=== PATIENT | female | born 1970 | race Caucasian/White ===

== ENCOUNTER → 2016-12-05 | Outpatient (CLI) | payer OTHER ==
[~2016-12-05] MED LIST: CLTP PO; ENBIUNK; HYDR0.5T PO; NAPR-1169 PO; SYN112 PO
--- NOTE | 2016-12-05 17:56 | DIAGNOSTIC IMAGING REPORT ---
BILATERAL LOWER EXTREMITY VENOUS DOPPLER HISTORY: Acute right lower extremity pain and swelling. Initial exam. RT LEG Pain, r/o DVT Right COMPARISON STUDY: None. FINDINGS: There is normal compressibility, flow, and augmentation within the right lower extremity deep venous system. IMPRESSION: No sonographic evidence of deep venous thrombosis within the right lower extremity. Electronically signed by: Charles Velazquez M.D. 12/05/2016 5:55 PM Dictated Date/Time: 12/05/2016 5:52 PM
== END | disposition home or self-care (01) ==
LOC: C.ULTR 16:52
PROVIDERS: ATTEND Family Medicine
DX: M79.661 Pain in right lower leg (principal)

== ENCOUNTER → 2017-07-15 | Outpatient (CLI) | payer OTHER ==
[2017-07-15 18:10] LABS: FOLLICLE STIMULAT HORMONE 62.26 IU/L
== END | disposition home or self-care (01) ==
LOC: C.LAB1850 16:46
PROVIDERS: ATTEND Obstetrics & Gynecology
DX: N89.8 Other specified noninflammatory disorders of vagina (principal); N91.2 Amenorrhea, unspecified

== ENCOUNTER → 2017-08-25 | Outpatient (CLI) | payer OTHER ==
--- NOTE | 2017-08-25 09:55 | DIAGNOSTIC IMAGING REPORT ---
THYROID ULTRASOUND CLINICAL HISTORY: Hypothyroidism. Thyroid nodule. COMPARISON STUDY: Thyroid ultrasound December 02, 2015. TECHNIQUE: Sonography of the thyroid gland was performed. FINDINGS: The thyroid gland is diminutive and heterogeneous. No thyroid nodule is identified. The right lobe measures 3 x 1 x 0.8 cm and left lobe measures 2.4 x 0.6 x 0.8 cm. Isthmus measures 0.2 cm in thickness. IMPRESSION: 1. Heterogeneous, small thyroid gland. 2. No thyroid nodule. Electronically signed by: Collin Barth M.D. 08/25/2017 9:53 AM Dictated Date/Time: 08/25/2017 9:52 AM
== END | disposition home or self-care (01) ==
LOC: C.ULTR 09:17
PROVIDERS: ATTEND Family Medicine
DX: E03.9 Hypothyroidism, unspecified (principal)

== ENCOUNTER → 2017-10-22 | Outpatient (CLI) | payer OTHER ==
[~2017-10-22] MED LIST changes: -NAPR-1169 PO; +NAPR-22 PO
--- NOTE | 2017-10-22 18:12 | Holter Monitor ---
Holter Monitor Report Holter Monitor Report Date of Service: 10/22/2017 Holter Monitor Report The patient was monitored for. 22 hours and 53 minutes The rhythm during the entire monitoring period was normal sinus The average heart rate during the monitoring period was 73 beats per minute with a minimum of 44 and maximum 153 There was no significant atrial or ventricular ectopy There were no sustained atrial or ventricular arrhythmias There were no episodes of significant bradycardia, pauses or heart block There was no atrial fibrillation Several symptoms of "sweating" reported. These correlated with sinus rhythm One episode of "moderate exercise" correlated with a sinus rhythm at 54 beats per minute Impression Normal Holter monitor without arrhythmia a good correlation between symptoms and arrhythmia.
--- NOTE | 2017-11-06 14:35 | MAMMOGRAPHY REPORT ---
BILATERAL DIGITAL SCREENING MAMMOGRAM TOMOSYNTHESIS WITH CAD: 10/22/2017 CLINICAL HISTORY: Routine screening. Patient has no complaints. TECHNIQUE: The study was acquired using full field digital technology and interpreted from soft copy. Breast tomosynthesis in addition to standard 2D mammography was performed. Current study was also ev aluated with a Computer Aided Detection (CAD) system. COMPARISON: Outside mammogram 04/18/16 BREAST COMPOSITION: There are scattered areas of fibroglandular density in both breasts. FINDINGS: There is a slightly prominent right axillary lymph node measuring 13 mm, which is stable co mparing to the 2017 mammogram, likely within the range of normal. The glandular tissue pattern is un changed. No suspicious mass, architectural distortion or cluster of microcalcifications is seen. IMPRESSION: ACR BI-RADS CATEGORY 1: NEGATIVE There is no mammographic evidence of malignancy. A 1 year screening mammogram is recommended.( 019) The patient will receive written notification of the results. Some breast cancers are not detected with mammography. A negative mammographic report should not ruddy y biopsy if a clinically suggestive mass is present. Delma Smith M.D. ay/:11/05/2017 14:35:05 Painting Manager: RT Mindi(Brina)(M), [facility] letter sent: Normal 1/2 BI-RADS Code: ACR BI-RADS Category 1: Negative
== END | disposition home or self-care (01) ==
LOC: C.MAMM 13:14
PROVIDERS: ATTEND Obstetrics & Gynecology
DX: Z12.31 Encounter for screening mammogram for malignant neoplasm of breast (principal)

== ENCOUNTER → 2017-11-24 | Outpatient (CLI) | payer OTHER ==
[~2017-11-24] MED LIST changes: +OPTIRAY 320 IV PRN
--- NOTE | 2017-11-24 09:12 | DIAGNOSTIC IMAGING REPORT ---
ABDOMEN AND PELVIS CT WITH IV AND ORAL CONTRAST CT DOSE: 634.32 mGy.cm HISTORY: Patient presents with acute inguinal adenopathy and constitutional symptoms. Clinical concern for possible malignancy or lymphoproliferative disorder. LYMPHADENOPATHY TECHNIQUE: Multiaxial CT images of the abdomen and pelvis were performed following the use of intravenous and oral contrast. A dose lowering technique was utilized adhering to the principles of ALARA. COMPARISON STUDY: CT chest 10/02/2017. FINDINGS: Pleural-based solid 4 mm nodule of the left lower lobe, image 30 series 3 is unchanged. Punctate calcified granuloma of the right middle lobe. Pleural-based 2 mm solid nodule right lower lobe on image 43 series 3 is also unchanged and likely benign. No pneumatosis or pneumoperitoneum. Imaged inferior cardiac chambers are unremarkable. Trace pericardial effusion. 2.3 x 1.9 cm centrally hypodense lesion with peripheral nodular discontinuous enhancement within the medial left hepatic lobe suggests hepatic hemangioma. Liver is otherwise unremarkable. No intrahepatic biliary ductal dilation. Gallbladder is mildly contracted. Patent portal vein. Spleen, pancreas and adrenal glands are unremarkable. Kidneys, ureters and bladder are unremarkable. 8 mm hypodense lesion of the posterior fundal uterus suspicious for a subserosal leiomyoma. Uterus is otherwise unremarkable. Adnexa are within normal limits. The aorta and IVC appear to be within normal limits. Nonenlarged likely physiologic retroperitoneal lymph nodes are present. Nonenlarged iliac chain and inguinal lymph nodes are also present. The largest inguinal lymph nodes measure up to 12 x 6 mm. No bowel obstruction or focal bowel wall thickening. Moderate volume of formed stool is noted throughout the colon. Terminal ileum and appendix appear unremarkable. No ascites or mesenteric inflammatory changes. Soft tissues are within normal limits. The bones appear to be intact. Moderate intervertebral disc space narrowing with vacuum disc phenomena and disc osteophyte complex formation noted at L5-S1. IMPRESSION: 1. No acute intra-abdominal or intrapelvic abnormality identified. 2. Nonenlarged physiologic appearing retroperitoneal, iliac chain and inguinal lymph nodes without pathologically enlarged lymph nodes identified. 3. Suggested constipation. 4. 2.3 cm centrally hypodense lesion with peripheral nodular discontinuous enhancement involving the medial left hepatic lobe suggests hepatic hemangioma. Electronically signed by: Charles Velazquez M.D. 11/24/2017 9:10 AM Dictated Date/Time: 11/24/2017 9:02 AM
== END | disposition home or self-care (01) ==
LOC: C.CTS 08:25
PROVIDERS: ATTEND Internal Medicine Hematology & Oncology
DX: R59.0 Localized enlarged lymph nodes (principal); K76.9 Liver disease, unspecified